=== PATIENT | female | born 1960 | race American Indian/Alaskan Native ===

== ENCOUNTER 2019-06-18 09:07 | Emergency (ER) | payer BC ==
[2019-06-18 09:17] VITALS: BP 155/96
--- NOTE | 2019-06-18 10:36 | Emergency Department Report ---
ED Lower Extremity HPI - General Chief Complaint: Back Pain/Injury Stated Complaint: PAIN LOWER BACK/(R) LEG Time Seen by Provider: 06/18/19 10:31 Source: patient Mode of arrival: Ambulatory Limitations: No Limitations - History of Present Illness Initial Comments: R upper thigh pain, progressively worsening x 2 months no injury but states it initially started after walking several miles one day certain positions hurt more, able to ambulate but pain increases with movements has some chronic low back pain issues and wonders if this is related no numbness/weakness no c/o back pain today MD Complaint: thigh injury -: Gradual, month(s) (2) Injury: Thigh: Right Type of Injury: unknown Place: home Severity: moderate Severity scale (0 -10): 6 Improves With: immobilization Worsens With: movement Associated Symptoms: ambulatory. denies: numbness, tingling - Related Data Previous Rx's Medication Instructions Recorded Last Taken Type Cyclobenzaprine [Flexeril] 10 mg PO TID PRN #30 tablet 06/18/19 Unknown Rx Naproxen [Naprosyn] 500 mg PO BID #20 tablet 06/18/19 Unknown Rx Allergies Allergy/AdvReac Type Severity Reaction Status Date / Time No Known Allergies Allergy Verified 06/18/19 09:14 ED Review of Systems ROS: Stated complaint: PAIN LOWER BACK/(R) LEG Other details as noted in HPI Comment: All other systems reviewed and negative Musculoskeletal: as per HPI ED Past Medical Hx - Past Medical History Previous Medical History?: No - Surgical History Past Surgical History?: No - Social History Smoking Status: Never Smoker Substance Use Type: None - Medications Home Medications: Home Medications Medication Instructions Recorded Confirmed Last Taken Type Cyclobenzaprine [Flexeril] 10 mg PO TID PRN #30 tablet 06/18/19 Unknown Rx Naproxen [Naprosyn] 500 mg PO BID #20 tablet 06/18/19 Unknown Rx ED Physical Exam - General Limitations: No Limitations General appearance: alert, in no apparent distress - Head Head exam: Present: atraumatic, normocephalic - Eye Eye exam: Present: normal appearance - ENT ENT exam: Present: mucous membranes moist - Neck Neck exam: Present: normal inspection - Respiratory Respiratory exam: Present: normal lung sounds bilaterally. Absent: respiratory distress - Cardiovascular Cardiovascular Exam: Present: regular rate, normal rhythm. Absent: systolic murmur, diastolic murmur, rubs, gallop - GI/Abdominal GI/Abdominal exam: Present: soft, normal bowel sounds - Extremities Exam Extremities exam: Present: normal inspection, full ROM, normal capillary refill (and pulses), other (painful ROM to R hip; pain is primarily in region of anterior thigh, tender over this area, no skin changes) - Back Exam Back exam: Present: normal inspection, full ROM - Neurological Exam Neurological exam: Present: alert, oriented X3, normal gait - Psychiatric Psychiatric exam: Present: normal affect, normal mood - Skin Skin exam: Present: warm, dry, intact, normal color. Absent: rash ED Course Vital Signs 06/18/19 09:15 Temperature 97.8 F Pulse Rate 72 Respiratory 16 Rate Blood Pressure 155/96 [Left] O2 Sat by Pulse 98 Oximetry ED Lower Extremity MDM - Medical Decision Making Ongoing R anterior thigh pain, reproducible on exam, and seemingly consistent with a muscular etiology. Neurovascular intact and no calf tenderness or swelling Discussed supportive care and PCP follow up, consider PT. Imaging felt unnecessary and not beneficial at this time. - Differential Diagnosis strain, unlikely fx, spasms Critical care attestation.: If time is entered above; I have spent that time in minutes in the direct care of this critically ill patient, excluding procedure time. ED Disposition Clinical Impression: Groin strain Qualifiers: Encounter type: initial encounter Laterality: right Qualified Code(s): S76.211A - Strain of adductor muscle, fascia and tendon of right thigh, initial encount er Disposition: - TO HOME OR SELFCARE Is pt being admited?: No Condition: Good Instructions: Groin Strain (ED) Prescriptions: Cyclobenzaprine [Flexeril] 10 mg PO TID PRN #30 tablet PRN Reason: Muscle Spasm Naproxen [Naprosyn] 500 mg PO BID #20 tablet Referrals: BERNADINE CARPIO MD [Staff Physician] - 3-5 Days Time of Disposition: 10:37
== END 2019-06-18 10:49 | disposition home or self-care (01) ==
LOC: ED 09:07
DX: S76.211A Strain of adductor muscle, fascia and tendon of right thigh, initial encounter (principal); Z79.899 Other long term (current) drug therapy; X58.XXXA Exposure to other specified factors, initial encounter; Y93.89 Activity, other specified; Y92.89 Other specified places as the place of occurrence of the external cause; Y99.8 Other external cause status